=== PATIENT | female | born 1985 | race Caucasian/White ===

== ENCOUNTER 2020-08-23 10:01 | Emergency (ER) | payer MEDICAID ==
[~2020-08-23] VITALS: Ht 165.1 cm; Wt 83.9 kg
[2020-08-23] MEDS ORDERED: MAGNESIUM/ALUMINUM HYDROXIDE/SIMETHICONE 30ML UDC PO ONE (10:30)
[2020-08-23] MEDS ORDERED: LORAZEPAM 1MG TABLET PO ONE (10:30)
[2020-08-23 10:52] LABS: BASOPHILS % 0.8 % (0.0-2.0); EOSINOPHILS % 1.2 % (0.0-5.0); HEMATOCRIT. 38.1 % (36.0-48.0); HEMOGLOBIN. 12.8 g/dL (12.0-16.0); LYMPHOCYTES % 17.2 % (20.0-50.0); MEAN CORPUSCULAR HEMOGLOBIN 29.9 pg (28.0-32.0); MEAN CORPUSCULAR VOLUME 88.6 fL (81.0-99.0); MEAN PLATELET VOLUME 8.8 fl (7.4-10.4); MONOCYTES % 5.8 % (2.0-8.0); PLATELET 223 x1000/uL (130-400)
[2020-08-23 10:59] LABS: CHLORIDE 108 mEq/L (98-107)
[2020-08-23] MEDS ORDERED: HYDR-3782 MT (14:33)
[2020-08-23 14:53] VITALS: BP 112/72
== END 2020-08-23 14:54 | disposition home or self-care (01) ==
LOC: ER 10:01
DX: R07.89 Other chest pain (principal); R00.2 Palpitations; K29.70 Gastritis, unspecified, without bleeding; F41.9 Anxiety disorder, unspecified; Z90.49 Acquired absence of other specified parts of digestive tract
CPT/HCPCS: 36415; 71045; 80053; 81025; 84484; 85025; 93005; 99285

== ENCOUNTER 2022-01-22 20:35 | Emergency (ER) | payer MEDICAID ==
[~2022-01-22] VITALS: Ht 170.2 cm; Wt 80.0 kg
[~2022-01-22 20:35] MED LIST: HYDR-3782 MT
[2022-01-22] MEDS ORDERED: PREDNISONE 20MG TABLET PO ONE (21:45)
[2022-01-22] MEDS ORDERED: NITROGLYCERIN 0.4MG TABLET SL SL PRN (21:45)
[2022-01-22] MEDS ORDERED: ASPIRIN 81MG TABLET PO ONE (21:45)
[2022-01-22] MEDS ORDERED: ACYCLOVIR 400 MG TABLET PO ONE (21:45)
[2022-01-22] MEDS ORDERED: CEPHALEXIN 250MG CAPSULE PO ONE (22:15)
[2022-01-22 22:55] LABS: BASOPHILS % 0.7 % (0.0-2.0); EOSINOPHILS % 1.4 % (0.0-5.0); HEMATOCRIT. 38.1 % (36.0-48.0); HEMOGLOBIN. 12.8 g/dL (12.0-16.0); LYMPHOCYTES % 19.2 % (20.0-50.0); MEAN CORPUSCULAR HEMOGLOBIN 29.6 pg (28.0-32.0); MEAN CORPUSCULAR VOLUME 88.4 fL (81.0-99.0); MEAN PLATELET VOLUME 8.7 fl (7.4-10.4); MONOCYTES % 6.1 % (2.0-8.0); NEUTROPHILS % 72.6 % (40.0-76.0); PLATELET 278 x1000/uL (130-400); RED BLOOD CELL COUNT 4.32 mill/uL (4.2-5.4); RED CELL DISTRIBUTION WIDTH 13.6 % (11.6-14.6)
[2022-01-22 23:04] LABS: CHLORIDE 109 mEq/L (98-107)
[2022-01-23] MEDS ORDERED: CEPHALEXIN 250MG CAPSULE PO NR (00:45)
[2022-01-23] MEDS ORDERED: ACYC200C31 MT (02:23)
[2022-01-23] MEDS ORDERED: P20 MT (02:23)
[2022-01-23] MEDS ORDERED: POLY15DR31 EACHEYE (02:23)
[2022-01-23] MEDS ORDERED: CEPH500T MT (02:25)
[2022-01-23 02:40] VITALS: BP 121/64
== END 2022-01-23 02:49 | disposition home or self-care (01) ==
LOC: ER 20:35
DX: G51.0 Bell's palsy (principal); L73.9 Follicular disorder, unspecified; R07.89 Other chest pain; I10 Essential (primary) hypertension; Z90.49 Acquired absence of other specified parts of digestive tract
CPT/HCPCS: 36415; 71045; 80053; 83880; 84443; 84484; 85025; 93005; 99285; J7512; Z7610

== ENCOUNTER 2022-05-14 01:09 | Emergency (ER) | payer MEDICAID ==
[~2022-05-14] VITALS: Ht 165.1 cm; Wt 93.0 kg
[~2022-05-14 01:09] MED LIST changes: +ACYC200C31 MT; +CEPH500T MT; +P20 MT; +POLY15DR31 EACHEYE
[2022-05-14 03:41] LABS: CLARITY URINE CLEAR (CLEAR); COLOR URINE YELLOW (YELLOW); KETONES URINE NEGATIVE (NEGATIVE); LEUKOCYTE ESTERASE URINE NEGATIVE (NEGATIVE); NITRITE URINE NEGATIVE (NEGATIVE); OCCULT BLOOD URINE NEGATIVE (NEGATIVE); PH URINE 6.5 (4.5-8.0); PROTEIN URINE NEGATIVE (NEGATIVE); SPECIFIC GRAVITY URINE 1.006 (1.005-1.030); UROBILINOGEN URINE 0.2 E.U./dL (0.2-1.0)
[2022-05-14 04:36] VITALS: BP 110/52
== END 2022-05-14 05:00 | disposition home or self-care (01) ==
LOC: ER 01:09
DX: R07.89 Other chest pain (principal); R30.0 Dysuria; I10 Essential (primary) hypertension; E78.00 Pure hypercholesterolemia, unspecified; Z86.73 Personal history of transient ischemic attack (TIA), and cerebral infarction without residual deficits; Z90.49 Acquired absence of other specified parts of digestive tract
CPT/HCPCS: 71045; 81003; 81025; 93005; 99285